=== PATIENT | male | born 1980 | race Caucasian/White ===

== ENCOUNTER 2022-11-04 08:26 | Emergency (ER) | payer OTHER, SELFPAY ==
[2022-11-04 08:37] VITALS: BP 152/99; PULSE 107; RESP 16; TEMP 37.5; O2SAT 99
[2022-11-04 08:42] VITALS: BP 152/99; PULSE 107; RESP 16; TEMP 37.5; O2SAT 99
--- NOTE | 2022-11-04 08:43 | ED.URI ---
HPI - URI/Sore Throat General Chief Complaint: Upper Respiratory Infection Stated Complaint: sore throat Time Seen by Provider: 11/04/22 08:43 Source: patient Mode of arrival: ambulatory Limitations: no limitations History of Present Illness HPI Narrative: Harjinder is a 42-year-old male patient presenting to the clinic today with complaints of a sore throat, headache, congestion, and fever x1 day. 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 Highest temperature was 103?. MD elicited complaint: sore throat and nasal congestion Related Data Home Medications Medication Instructions Recorded Confirmed amlodipine 10 mg tablet mg 11/04/22 hydrochlorothiazide 25 mg tablet 25 mg PO DAILY 11/04/22 11/04/22 losartan 100 mg tablet 100 mg PO DAILY 11/04/22 11/04/22 omeprazole 40 mg capsule,delayed 40 mg PO DAILY 11/04/22 11/04/22 release potassium chloride 20 mEq 40 meq PO BID 11/04/22 11/04/22 tablet,extended release(part/cryst) Allergies Allergy/AdvReac Type Severity Reaction Status Date / Time erythromycin base Allergy Abdominal Verified 11/04/22 08:39 Pain levofloxacin [From Levaquin] Allergy Joint Pain Verified 11/04/22 08:39 lisinopril AdvReac Cough Verified 11/04/22 08:39 Review of Systems Review of Systems: Pertinent positives per HPI. Patient denies any rash, visual changes, dizziness, cough, shortness of breath, chest pain, palpitations, nausea, vomiting, diarrhea, constipation, abdominal pain, or any urinary issues. PMFSH Comments At the time of my signature, I reviewed and agree with the nursing past medical, surgical, social, and family history. There is no relevant family history pertinent to the patient complaint. Exam Narrative: General: Well-developed, well nourished, in no apparent distress Head: Normocephalic, atraumatic Eyes: Pupils equally round and reactive to light bilaterally, EOM intact, sclera and conjunctive clear, no discharge, lids normal Ears: TMs intact and clear, ear canals clear, no drainage, grossly hearing normal. Nose: Nares patent, clear nasal discharge, no inflammation, no sinus tenderness. Mouth: Oral pharynx without lesions or masses, good dentition, MMM. Oropharynx red bilateral tonsillar swelling Neck: Supple, trachea midline, enlargement of anterior cervical nodes, no thyroid masses or goiter palpable. Cardio: Regular rate and rhythm, s1 and s2 normal, no murmur appreciated. Resp: Clear to auscultation bilaterally, no rhonchi, rales, wheezing or rubs Course Course Emergency Course: Portions of this record may have been created with voice recognition software. Level of Care: Express Care Visit Vital Signs Vital signs: Vital Signs Temperature 37.5 C 11/04/22 08:37 Pulse Rate 107 H 11/04/22 08:37 Respiratory Rate 16 11/04/22 08:37 Blood Pressure 152/99 H 11/04/22 08:37 Pulse Oximetry 99 11/04/22 08:37 Oxygen Delivery Room Air 11/04/22 08:37 Temperature 37.5 C 11/04/22 08:42 Pulse Rate 107 H 11/04/22 08:42 Respiratory Rate 16 11/04/22 08:42 Blood Pressure 152/99 H 11/04/22 08:42 Pulse Oximetry 99 11/04/22 08:42 Oxygen Delivery Room Air 11/04/22 08:42 Vital signs reviewed MDM - URI/Sore Throat MDM Narrative Medical decision making narrative: At the time of visit patient is resting comfortably on the exam table. Strep screen was obtained in the clinic today and was positive. Prescription for amoxicillin was sent to the pharmacy and supportive measures were discussed with the patient he voiced understanding discharge instructions and agrees to treatment plan. Differential Diagnosis Differential diagnosis: Likely upper respiratory infection, otitis media, sinusitis, viral infection, bronchitis, influenza, pharyngitis and other (COVID) Lab Data Labs: Strep Screen Positive Group A Strep *(Reference Range: Negative)* Discharge
== END 2022-11-04 08:56 | disposition home or self-care (01) ==
PROVIDERS: Emergency Provider Nurse Practitioner Family
DX: J02.0 Streptococcal pharyngitis (principal); I10 Essential (primary) hypertension; K21.9 Gastro-esophageal reflux disease without esophagitis
CPT/HCPCS: 87880; 99213; G0463